=== PATIENT | female | born 1950 | race Caucasian/White ===

== ENCOUNTER → 2023-12-02 15:17 | Outpatient (REF) | payer MEDICARE, OTHER, SELFPAY | LOC: WDC 15:17 | PROVIDERS: ATTENDING PHYSICIAN Family Medicine | DX: Z12.31 Encounter for screening mammogram for malignant neoplasm of breast (principal) | CPT/HCPCS: 77063; 77067 ==

== ENCOUNTER 2025-05-24 13:03 | Emergency (ER) | payer MEDICARE, OTHER, SELFPAY ==
[2025-05-24 13:06] VITALS: BP 196/106
[2025-05-24 13:26] VITALS: BP 190/73
[2025-05-24 13:43] LABS: Hematocrit 37.5 % (37.0-47.0); Hemoglobin 12.0 g/dL (12.0-16.0); Mean Corp Hgb Conc. 32.0 g/dL (33.0-37.0); Mean Corpuscular Volume 90.1 fL (81.0-99.0); Nucleated Red Blood Cells % 0 %; Platelet Count 376 10^3/uL (130-400); Red Cell Dist. Width 14.6 % (11.5-14.5)
[2025-05-24 13:59] LABS: ALT (SGPT) 25 U/L (0-35); AST (SGOT) 25 U/L (14-36); Albumin 4.6 g/dl (3.5-5.0); Alkaline Phosphatase 65 U/L (38-126); Blood Urea Nitrogen 18 mg/dl (7-17); Calcium 9.9 mg/dl (8.4-10.2); Carbon Dioxide 25 mmol/L (22-30); Chloride 106 mmol/L (98-107); Glucose 112 mg/dl (70-99); Potassium 4.2 mmol/L (3.5-5.1); Sodium 139 mmol/L (135-145); Total Protein 7.6 g/dl (6.3-8.2); eGFR > 60.00
[2025-05-24 14:00] VITALS: BP 175/85
--- NOTE | 2025-05-24 14:06 | ED.GENMED ---
History of Present Illness
General
Chief Complaint: Chest Pain
Time Seen by Provider: 05/24/25 13:38
Nursing documentation reviewed up to this point in time: agreed with
History of Present Illness
History of Present Illness:
74 year old female presents to the ED from home for evaluation of intermittent burning dyspepsia symptoms over the last 3 days. Patient reports that these occur mainly when she is at rest. They are not necessarily associated with eating. They are
not provoked with activity or exertion. Patient denies any recent decrease in exercise tolerance. She denies any associated dyspnea or nausea. She has not tried any [id number] remedies for her symptoms. She denies any cough or cold
symptoms. No fevers or chills. No prior personal history of ACS. Patient is status post cholecystectomy.
Past History
Past History
ED Past Medical History: GERD, Hypercholesterolemia and NIDDM
ED Past Surgical History: Appendectomy, Cholecystectomy, Orthopedic and Other
Social History
Tobacco: Non-smoker
Personal:
Living: with family
Family History
Family History: Other (CAD with father, mother with kidney failure, daughter with peptic ulcer disease)
Review of Systems
Review of Systems
Allergies reviewed?: Yes
Phy Exam
Physical Exam
Physical Exam:
Patient is awake, alert, appears in no acute distress, head is NCAT, PERRL, EOMI mucous membranes moist, conjunctiva pink, heart regular rate and rhythm without murmurs or ectopy, lungs are clear to auscultation without wheezes rales or rhonchi, no
JVD, abdomen is soft and nontender on palpation, extremities without edema, GCS is 15
Scores
Heart Score for Chest Pain Patients
STEMI patient?: No
History: Slightly or Non-Suspicious
ECG: Nonspecific Repolarization
Age: >/= 65 years
Risk Factors: 1 or 2 Risk Factors
Troponin: </= Normal Limit
Heart Score for Chest Pain Patients: 4
Heart Score Risk: 20.3% MACE over next 6 weeks
Course
Orders/Labs/Results
Orders:
Orders
05/24/25 13:04
Electrocardiogram (*1) Urgent
Reason for Study: Chest Pain
EKG- Treatment ONCE
05/24/25 13:36
CBC/With Diff [Complete Blood Count/With Diff] Urgent
CMP [Comprehensive Metabolic Panel] Urgent
Troponin I Urgent
05/24/25 13:42
CR Chest - 2 Views Urgent
Comment:
Reason For Exam: chest pain
05/24/25 14:04
Famotidine [Pepcid] 20 mg IV NOW STA
Abnormal Lab Results
05/24/25
13:36
RBC 4.16 L 10^6/uL
(4.20-5.40)
MCHC 32.0 L g/dL
(33.0-37.0)
RDW 14.6 H %
(11.5-14.5)
Absolute Monos (auto) 0.7 H 10^3/uL
(0.1-0.6)
BUN 18 H mg/dl
(7-17)
Creatinine 0.5 L mg/dL
(0.6-1.0)
Glucose 112 H mg/dl
(70-99)
05/24/25 13:36
05/24/25 13:36
CBC reassuring. Chemistries within normal limits. Troponin negative
Vital Signs
Initial and Last Documented VS:
Initial Vital Signs
Temp Pulse Resp BP Pulse Ox
97.4 F 85 14 196/106 99
05/24/25 13:06 05/24/25 13:06 05/24/25 13:06 05/24/25 13:06 05/24/25 13:06
Last Documented Vital Signs
Temp Pulse Resp BP Pulse Ox
97.4 F 71 14 175/85 99
05/24/25 13:06 05/24/25 14:00 05/24/25 14:00 05/24/25 14:00 05/24/25 14:10
MDM/Problems Addressed
Differential Diagnosis Includes:
Differential diagnosis to consider but not limited to ACS, GERD, reflux, along with other etiologies considered
Chronic conditions affecting care:
Diabetes, advanced age
*Radiology
Radiology exam reviewed: preliminary read by ED provider (I dependently viewed and interpreted two-view chest showing clear lungs, no infiltrate, normal cardiac silhouette)
*Pulse Oximetry
SaO2: 99
Oxygen Mode of Delivery: Room air
Patient hypoxic: no
*EKG
Interpreted by ED Provider?: Yes (I independently viewed and interpreted twelve-lead EKG showing sinus rhythm with PACs, right bundle branch block, rate 74, normal axis, no ST elevation, this is an abnormal tracing with new right bundle branch block
compared to prior from 02/24/2023)
*Relocation Counselor Interpretation
Rate: normal (I independently viewed and interpreted rhythm strip showing sinus rhythm with PACs, right bundle branch block)
*Critical Care Note
Total Time (30-74mins, 75-104mins- exclusive of procedures): Not Applicable
Update Note
Update Note:
Patient had no recurrent symptoms while in the emergency department. I discussed with her very reassuring workup including negative troponin, which is important as she has been having 3 days of intermittent pain. I discussed with patient need for
follow-up with cardiology for reevaluation and further care. She has never seen a engineer exhauster before, will refer. She is currently on aspirin. She expressed understanding of discharge instructions. She expressed understanding of benefit of
utilizing Pepcid until seen in follow-up. She agrees with plan for discharge and has no questions at the current time.
ED Attending Note
-
Portions of this chart may have been created with voice recognition software.� Occasional wrong word or��sound alike� substitutions may have occurred due to the inherent limitations of voice recognition software.
Discharge Plan
Departure
Patient Disposition: Home (Routine Discharge)
Date of Disposition: 05/24/25
Time of Disposition: 15:13
Patient with high blood pressure during this ER visit?: Yes
Discharge Problem:
Chest pain, GERD (gastroesophageal reflux disease)
Instructions: Acid Reflux and GERD in Adults (DC), Chest Pain CBC Follow Up, BLOOD PRESSURE
Prescriptions:
No Action
aspirin 81 MG tablet,delayed release (DR/EC)
81 mg PO DAILY
metformin 1,000 MG tablet
1,000 mg PO BID
glimepiride 4 MG tablet
4 mg PO BID
pantoprazole 40 MG tablet,delayed release (DR/EC)
40 mg PO DAILY Qty: 30 0RF
valacyclovir [Valtrex] 1 gram tablet
1,000 mg PO TID Qty: 21 0RF
gabapentin 300 mg capsule
300 mg PO BID Qty: 14 0RF
hydrocodone-acetaminophen 5-325 mg tablet
1 tab PO Q8H PRN (Reason: Pain) Qty: 10 0RF
tramadol 50 mg tablet
50 mg PO Q8H PRN (Reason: Pain) Qty: 20 0RF
Referrals:
UNKNOWN - PT DOES,NOT KNOW [Family Provider]
Activity Restrictions/Additional Instructions:
Continue your current medications. Please follow-up with cardiology office for reevaluation and further care. Please add Pepcid as available [id number] to help with your symptoms. Return to the ER for any concerns
Interventions
Interventions:
*Risk Screen - Suicide Last Done: 05/24/25 13:06
*General Assessment Last Done: 05/24/25 13:06
*Neglect/Abuse Screening Last Done: 05/24/25 13:06
*ED COVID-19 Vaccine History Last Done: 05/24/25 13:06
ED- Cardiac Assessment Last Done: 05/24/25 13:30
Discharge Date and Time
Print Language: BELARUSIAN
[2025-05-24 14:11] LABS: Troponin I < 0.012 ng/ml
[2025-05-24] MEDS: PEPCID 20 MG IV (14:18)
[2025-05-24 15:43] VITALS: BP 165/67
== END 2025-05-24 15:44 | disposition home or self-care (01) ==
LOC: EMR 13:03
PROVIDERS: Emergency Medicine; EMERGENCY PHYSICIAN Emergency Medicine
DX: R07.9 Chest pain, unspecified (principal); K21.9 Gastro-esophageal reflux disease without esophagitis; I49.1 Atrial premature depolarization; I45.10 Unspecified right bundle-branch block; R03.0 Elevated blood-pressure reading, without diagnosis of hypertension; E11.9 Type 2 diabetes mellitus without complications; E78.00 Pure hypercholesterolemia, unspecified; Z79.82 Long term (current) use of aspirin; Z79.84 Long term (current) use of oral hypoglycemic drugs; Z82.49 Family history of ischemic heart disease and other diseases of the circulatory system
CPT/HCPCS: 99284; 96374; 71046; 80053; 84484; 85025; 93005

== ENCOUNTER → 2025-06-08 09:14 | Outpatient (REF) | payer MEDICARE, OTHER, SELFPAY | LOC: HWRCS 09:14 | PROVIDERS: ATTENDING PHYSICIAN Internal Medicine; FAMILY PHYSICIAN Family Medicine | DX: R07.89 Other chest pain (principal); I45.10 Unspecified right bundle-branch block; E78.00 Pure hypercholesterolemia, unspecified; E11.9 Type 2 diabetes mellitus without complications | CPT/HCPCS: 93306 ==